=== PATIENT | female | born 1980 | race Hispanic/Latino ===

== ENCOUNTER 2018-08-03 16:39 | Emergency (ER) | payer MEDICARE ==
[~2018-08-03 16:39] MED LIST: AMIT25TA9 PO; ASPI-1012 PO; BUPR150T8 PO; CARV6.25 PO; CEPH-578 PO; CLOP75TA32 PO; ESOM40CA PO; IBUP-2353 GT; INSU10VI3 SQ; LINA5TAB PO; LISI-613 PO; LITH300C3 PO; METF-526 PO; NITR100C PO; PROM25TA7 PO
[2018-08-03] MEDS ORDERED: ONDANSETRON HCL 4 MG/2 ML VIAL ONE (17:03)
[2018-08-03] MEDS ORDERED: SODIUM CHLORIDE 0.9% 1000ML 1,000 ML IV ONE (17:03)
[2018-08-03 17:22] LABS: ABG OXYGEN SATURATION 35.9 % (95.0-99.0); BASE EXCESS,VENOUS BLOOD GAS -2.4 (-2.0-3.0); HCO3,VENOUS BLOOD GAS 23.2 (21.0-28.0); PCO2,VENOUS BLOOD GAS 43 (32-45); PH,VENOUS BLOOD GAS 7.351 (7.350-7.450)
[2018-08-03 17:25] LABS: BILIRUBIN,URINE NEGATIVE (NEGATIVE); COLOR,URINE YELLOW (YELLOW); GLUCOSE, URINE (UA) 250 mg/dL (NEGATIVE); KETONES,URINE 5 mg/dL (NEGATIVE); LEUKOCYTE ESTERASE ,URINE TRACE (NEGATIVE); NITRATE,URINE NEGATIVE (NEGATIVE); OCCULT BLOOD,URINE LARGE (NEGATIVE); PH,URINE 8.5 (5.0-8.0); PROTEIN,URINE >=300 (NEGATIVE); UROBILINOGEN,URINE 0.2 mg/dL (0.2-1.0)
[2018-08-03 17:26] LABS: APPEARANCE,URINE CLOUDY (CLEAR)
[2018-08-03 17:27] LABS: BASOPHILS % (AUTO) 0.5 % (0.0-5.0); EOSINOPHILS % (AUTO) 2.1 % (0.0-8.0); HEMATOCRIT 29.5 % (36-48); LYMPHOCYTES % (AUTO) 11.3 % (21.0-51.0); MEAN CORPUSCULAR HGB CONC 33.6 g/dL (32.0-36.0); MEAN CORPUSCULAR VOLUME 86.3 fL (79-99); MONOCYTES % (AUTO) 6.2 % (3.0-13.0); NEUTROPHILS % (AUTO) 79.9 % (40.0-77.0); PLATELET COUNT (AUTO) 152 K/uL (130-400); RED BLOOD CELL COUNT(AUTO) 3.42 MIL/uL (4.00-5.50); RED CELL DISTRIBUTION WIDTH 13.2 % (11.0-15.5); WHITE BLOOD COUNT (AUTO) 6.6 K/uL (4.8-10.8)
[2018-08-03 17:33] LABS: RBC,URINE 51-100 /HPF (0-1); WBC,URINE 51-100 /HPF (0-1)
[2018-08-03 17:34] LABS: BACTERIA,URINE Moderate /HPF (None Seen)
[2018-08-03 17:36] LABS: SQUAMOUS EPITHELIAL CELL,UR None Seen /HPF (0-2)
[2018-08-03 17:39] LABS: MUCUS,URINE Moderate LPF (None Seen)
[2018-08-03 17:45] LABS: ALANINE AMINOTRANSFERASE 12 U/L (12-78); AMYLASE 31 U/L (25-115); ASPARTATE AMINOTRANSFERASE 13 U/L (10-37); BILIRUBIN,TOTAL 0.5 mg/dL (0.2-1.0); CARBON DIOXIDE 26 mmol/L (21-32); CHLORIDE 101 mmol/L (101-111); GLOMERULAR FILTR. RATE CALC 65 mL/min (>60); LIPASE 137 U/L (114-286); POTASSIUM 3.8 mmol/L (3.5-5.1); SODIUM SERUM 136 mmol/L (136-145); TOTAL PROTEIN, SERUM 6.7 g/dL (6.0-8.3); UREA NITROGEN, BLOOD 17 mg/dL (7-18)
[2018-08-03 17:52] LABS: GLUCOSE,RANDOM 441 mg/dL (70-105)
[2018-08-03 17:58] LABS: ACETONE,BLOOD NEGATIVE (NEGATIVE)
[2018-08-03] MEDS ORDERED: INSULIN HUMULIN R 100 UNIT/ML 3ML ONE (18:12)
[2018-08-03] MEDS ORDERED: CEPHALEXIN 500 MG CAPSULE ONE (19:38)
== END 2018-08-03 20:20 | disposition home or self-care (01) ==
LOC: EDH 16:39
DX: N39.0 Urinary tract infection, site not specified (principal); E11.65 Type 2 diabetes mellitus with hyperglycemia; Z98.51 Tubal ligation status; Z98.890 Other specified postprocedural states
CPT/HCPCS: 36415; 36600; 80053; 81001; 82009; 82150; 82803; 82948; 83690; 85025; 87088; 96361; 96374; 96375; 99283; J1815; J2405; J7030